=== PATIENT | male | born 1945 | race Caucasian/White ===

== ENCOUNTER 2021-05-28 14:53 | Inpatient (IN) | payer MEDICARE, OTHER ==
[~2021-05-28] VITALS: Ht 172.7 cm; Wt 83.0 kg
[2021-05-28] MEDS ORDERED: MECLIZINE HCL 25 MG TAB PO ONE (15:15)
[2021-05-28 15:40] LABS: Basophils # (auto) 0.1 10 ^3/uL (0-0.2); Basophils % (auto) 1.5 % (0.0-2.0); Eosinophils # (auto) 0.2 10 ^3/uL (0-0.8); Eosinophils % (auto) 2.8 % (0.0-7.0); Hematocrit 29.3 % (41.0-53.0); Hemoglobin 9.5 g/dL (13.5-17.5); Lymphocytes # (auto) 0.6 10 ^3/uL (0.4-5.4); Lymphocytes % (auto) 9.3 % (10.0-50.0); Mean Corpuscular Hgb Conc. 32.4 g/dL (32.0-36.0); Mean Corpuscular Volume 86.2 fL (80.0-100.0); Monocytes # (auto) 0.3 10 ^3/uL (0-1.3); Monocytes % (auto) 5.1 % (0.0-12.0); Neutrophils # (auto) 5.2 10 ^3/uL (1.6-8.6); Neutrophils % (auto) 81.3 % (37.0-80.0); Nucleated Red Blood Cells % 0.1 %; Red Cell Distribution Width 16.1 % (11.8-14.3); White Blood Cell 6.4 10^3/uL (4.4-10.8)
[2021-05-28 15:51] LABS: Albumin 2.9 g/dL (3.4-5.0); Calcium 6.2 mg/dL (8.5-10.1); Magnesium 2.5 mg/dL (1.6-2.6); Potassium 4.2 mmol/L (3.5-5.1)
[2021-05-28 15:54] LABS: Bilirubin, Total 1.2 mg/dL (0.2-1.0); Total Protein 6.3 g/dL (6.4-8.2)
[2021-05-28] MEDS ORDERED: DEXTROSE (50%) 50ML SYRG IV PRN (22:15)
[2021-05-28] MEDS ORDERED: MECLIZINE HCL 25 MG TAB PO PRN (22:15)
[2021-05-28] MEDS ORDERED: ACETAMINOPHEN 325 MG TAB PO PRN (22:15)
[2021-05-28] MEDS ORDERED: ONDANSETRON HCL 4 MG/2 ML VIAL IV PRN (22:15)
[2021-05-29] MEDS ORDERED: CARV6.2551 PO (00:28)
[2021-05-29] MEDS ORDERED: PERCOT PO (00:28)
[2021-05-29] MEDS ORDERED: LEVO125T7 PO (00:28)
[2021-05-29] MEDS ORDERED: AMLO-496 PO (00:28)
[2021-05-29] MEDS ORDERED: CALC667C PO (00:28)
[2021-05-29] MEDS ORDERED: OMEP20TA PO (00:28)
[2021-05-29] MEDS ORDERED: ROPI0.5T18 PO (00:28)
[2021-05-29] MEDS ORDERED: FERR-20 PO (00:28)
[2021-05-29 05:16] VITALS: BP 159/69
[2021-05-29 06:05] LABS: Basophils # (auto) 0.1 10 ^3/uL (0-0.2); Basophils % (auto) 1.2 % (0.0-2.0); Eosinophils # (auto) 0.2 10 ^3/uL (0-0.8); Eosinophils % (auto) 2.8 % (0.0-7.0); Hematocrit 28.1 % (41.0-53.0); Hemoglobin 9.3 g/dL (13.5-17.5); Lymphocytes # (auto) 0.9 10 ^3/uL (0.4-5.4); Lymphocytes % (auto) 15.3 % (10.0-50.0); Mean Corpuscular Hemoglobin 28.4 pg (28.0-32.0); Monocytes # (auto) 0.6 10 ^3/uL (0-1.3); Monocytes % (auto) 9.4 % (0.0-12.0); Neutrophils # (auto) 4.3 10 ^3/uL (1.6-8.6); Neutrophils % (auto) 71.3 % (37.0-80.0); Nucleated Red Blood Cells % 0.1 %; Red Blood Cells 3.27 10^6/uL (4.5-5.90); Red Cell Distribution Width 16.1 % (11.8-14.3)
[2021-05-29] MEDS: InsuLIN REG 1unit/0.01ml Soln (100units/ml) SC SCH ×4 (06:13→21:40)
[2021-05-29] MEDS: ACCU-CHEK COMFORT CURVE STRIP VI SCH ×4 (06:14→21:40)
[2021-05-29 06:34] LABS: Potassium 4.6 mmol/L (3.5-5.1)
[2021-05-29 06:41] LABS: BUN/Creatinine Ratio 5.5; Bilirubin, Total 1.1 mg/dL (0.2-1.0)
[2021-05-29 08:15] LABS: Calcium 5.9 mg/dL (8.5-10.1)
[2021-05-29] MEDS: SEVELAMER 800 MG TAB PO SCH ×3 (09:18→16:56)
[2021-05-29] MEDS: ZINC SULFATE 220mg CAP or TAB PO SCH (09:18)
[2021-05-29] MEDS: amLODIPine BESYLATE 5 MG TAB PO SCH (09:18)
[2021-05-29] MEDS: ASCORBIC ACID 500 MG TAB PO SCH ×2 (09:19→21:58)
[2021-05-29] MEDS: cloNIDine HCL 0.1 MG TAB PO PRN (09:19)
[2021-05-29 11:10] LABS: Urine Bacteria NONE SEEN /hpf (None Seen); Urine Blood 1+ /uL (Negative); Urine Specific Gravity 1.014 (1.001-1.035); Urine WBC 1 /hpf (0 - 3)
[2021-05-29] MEDS: OXYCODONE W/ ACETAMINOPHEN 5/325MG TABLET PO PRN ×2 (11:54→16:56)
[2021-05-29 13:00] VITALS: BP 154/63
[2021-05-29 17:00] VITALS: BP 158/63
[2021-05-29 19:59] LABS: Cholesterol 130 mg/dL (< 200)
[2021-05-29 20:01] LABS: HDL Cholesterol 53 mg/dL (40-59); LDL Cholesterol 63 mg/dL (< 100); Triglycerides 70 mg/dL (< 150)
[2021-05-29 22:00] VITALS: BP 150/64
[2021-05-30] MEDS: OXYCODONE W/ ACETAMINOPHEN 5/325MG TABLET PO PRN ×3 (00:42→20:12)
[2021-05-30 05:00] VITALS: BP 164/63
[2021-05-30 05:52] LABS: Basophils # (auto) 0.1 10 ^3/uL (0-0.2); Basophils % (auto) 1.3 % (0.0-2.0); Eosinophils # (auto) 0.2 10 ^3/uL (0-0.8); Hematocrit 27.1 % (41.0-53.0); Lymphocytes # (auto) 0.8 10 ^3/uL (0.4-5.4); Lymphocytes % (auto) 13.8 % (10.0-50.0); Mean Corpuscular Hemoglobin 28.5 pg (28.0-32.0); Mean Corpuscular Hgb Conc. 33.3 g/dL (32.0-36.0); Mean Corpuscular Volume 85.8 fL (80.0-100.0); Monocytes # (auto) 0.5 10 ^3/uL (0-1.3); Monocytes % (auto) 8.5 % (0.0-12.0); Neutrophils # (auto) 4.1 10 ^3/uL (1.6-8.6); Neutrophils % (auto) 73.4 % (37.0-80.0); Red Blood Cells 3.16 10^6/uL (4.5-5.90); Red Cell Distribution Width 16.4 % (11.8-14.3); White Blood Cell 5.5 10^3/uL (4.4-10.8)
[2021-05-30] MEDS: InsuLIN REG 1unit/0.01ml Soln (100units/ml) SC SCH ×4 (06:20→21:02)
[2021-05-30] MEDS: ACCU-CHEK COMFORT CURVE STRIP VI SCH ×4 (06:20→21:02)
[2021-05-30 06:31] LABS: Potassium 5.4 mmol/L (3.5-5.1)
[2021-05-30 06:48] LABS: BUN/Creatinine Ratio 5.9
[2021-05-30 06:53] LABS: Calcium 5.8 mg/dL (8.5-10.1)
[2021-05-30] MEDS ORDERED: SODIUM CHL 0.9% 1000 ML BAG XX ONE (07:00)
[2021-05-30 08:00] VITALS: BP 144/59
[2021-05-30] MEDS: SEVELAMER 800 MG TAB PO SCH ×3 (08:00→18:26)
[2021-05-30 09:00] VITALS: BP 146/59
[2021-05-30] MEDS ORDERED: GEMFIBROZIL 600 MG TAB PO SCH (10:00)
[2021-05-30 13:00] VITALS: BP 196/79
[2021-05-30] MEDS: ASCORBIC ACID 500 MG TAB PO SCH ×2 (13:00→20:13)
[2021-05-30] MEDS: PANTOPRAZOLE 40 MG TAB PO SCH (13:01)
[2021-05-30] MEDS: ZINC SULFATE 220mg CAP or TAB PO SCH (13:02)
[2021-05-30] MEDS: amLODIPine BESYLATE 5 MG TAB PO SCH (13:02)
[2021-05-30] MEDS: cloNIDine HCL 0.1 MG TAB PO PRN (13:03)
[2021-05-30 17:25] VITALS: BP 162/72
[2021-05-30] MEDS ORDERED: EPOETIN ALFA-EPBX 10,000 UNIT/1ML VIAL SC ONE (21:00)
[2021-05-30 21:30] VITALS: BP 159/69
[2021-05-31 05:00] VITALS: BP 161/75
[2021-05-31] MEDS: cloNIDine HCL 0.1 MG TAB PO PRN (05:15)
[2021-05-31] MEDS: InsuLIN REG 1unit/0.01ml Soln (100units/ml) SC SCH ×3 (06:25→17:00)
[2021-05-31] MEDS: ACCU-CHEK COMFORT CURVE STRIP VI SCH ×3 (06:25→17:00)
[2021-05-31 07:02] LABS: Basophils # (auto) 0 10 ^3/uL (0-0.2); Basophils % (auto) 1.1 % (0.0-2.0); Eosinophils # (auto) 0.1 10 ^3/uL (0-0.8); Eosinophils % (auto) 2.8 % (0.0-7.0); Hematocrit 25.8 % (41.0-53.0); Hemoglobin 8.8 g/dL (13.5-17.5); Lymphocytes # (auto) 0.8 10 ^3/uL (0.4-5.4); Lymphocytes % (auto) 17.5 % (10.0-50.0); Mean Corpuscular Hemoglobin 29.4 pg (28.0-32.0); Mean Corpuscular Hgb Conc. 34.3 g/dL (32.0-36.0); Mean Corpuscular Volume 85.8 fL (80.0-100.0); Monocytes # (auto) 0.5 10 ^3/uL (0-1.3); Monocytes % (auto) 10.5 % (0.0-12.0); Neutrophils # (auto) 3.1 10 ^3/uL (1.6-8.6); Neutrophils % (auto) 68.1 % (37.0-80.0); Nucleated Red Blood Cells % 0.1 %; Red Blood Cells 3.01 10^6/uL (4.5-5.90); Red Cell Distribution Width 16.2 % (11.8-14.3); White Blood Cell 4.6 10^3/uL (4.4-10.8)
[2021-05-31 07:22] LABS: Calcium 6.5 mg/dL (8.5-10.1); Potassium 4.9 mmol/L (3.5-5.1)
[2021-05-31] MEDS: SEVELAMER 800 MG TAB PO SCH ×2 (08:34→12:00)
[2021-05-31] MEDS: OXYCODONE W/ ACETAMINOPHEN 5/325MG TABLET PO PRN (08:40)
[2021-05-31 09:00] VITALS: BP 152/59
[2021-05-31] MEDS: ASCORBIC ACID 500 MG TAB PO SCH (09:50)
[2021-05-31] MEDS: ZINC SULFATE 220mg CAP or TAB PO SCH (09:50)
[2021-05-31] MEDS: amLODIPine BESYLATE 5 MG TAB PO SCH (09:52)
[2021-05-31] MEDS: PANTOPRAZOLE 40 MG TAB PO SCH (09:53)
[2021-05-31 13:00] VITALS: BP 149/65
[2021-05-31 16:37] VITALS: BP 137/51
== END 2021-05-31 17:55 | disposition home or self-care (01) | DRG 64 ==
LOC: ER 14:53 → EDBD 14:53 → OVERFLOW 22:04 → WEST WING 23:43
PROVIDERS: ADMIT Nurse Practitioner; ATTEND Internal Medicine Pulmonary Disease
PROC: 5A1D70Z Performance of Urinary Filtration, Intermittent, Less than 6 Hours Per Day (ICD-10-PCS; principal; 2021-05-30)
DX: I63.9 Cerebral infarction, unspecified (principal); N18.6 End stage renal disease; E43 Unspecified severe protein-calorie malnutrition; I12.0 Hypertensive chronic kidney disease with stage 5 chronic kidney disease or end stage renal disease; K92.2 Gastrointestinal hemorrhage, unspecified; N25.81 Secondary hyperparathyroidism of renal origin; Z99.2 Dependence on renal dialysis; E03.9 Hypothyroidism, unspecified; D63.1 Anemia in chronic kidney disease; E78.5 Hyperlipidemia, unspecified; I16.0 Hypertensive urgency; R26.9 Unspecified abnormalities of gait and mobility; E11.22 Type 2 diabetes mellitus with diabetic chronic kidney disease; Z88.0 Allergy status to penicillin; Z88.8 Allergy status to other drugs, medicaments and biological substances; Z68.27 Body mass index [BMI] 27.0-27.9, adult; Z83.3 Family history of diabetes mellitus; Z20.822 Contact with and (suspected) exposure to COVID-19
CPT/HCPCS: 36415; 70450; 70551; 71045; 80048; 80053; 80061; 81001; 82962; 83735; 83880; 84100; 85025; 87426; 90935; 93306; 93886; G0378; J1815